=== PATIENT | male | born 1990 | race Caucasian/White ===

== ENCOUNTER 2017-11-21 13:35 | Emergency (ER) | payer MEDICAID, OTHER ==
[~2017-11-21] VITALS: Ht 185.4 cm; Wt 80.0 kg
[~2017-11-21 13:35] MED LIST: ALBU8HFA PO; CIPR2.5D18 LEFTEYE; CIPR2.5D18 RIGHTEYE; HYDR-569 PO; OMEP20CA10 PO; PRED50TA PO
[2017-11-21 14:47] VITALS: BP 138/87
== END 2017-11-21 15:00 | disposition left against medical advice (07) ==
LOC: ER 13:35
DX: R11.10 Vomiting, unspecified (principal); R42 Dizziness and giddiness

== ENCOUNTER 2019-09-07 00:09 | Emergency (ER) | payer MEDICAID ==
[~2019-09-07] VITALS: Ht 188 cm; Wt 81.8 kg
[~2019-09-07 00:09] MED LIST changes: +HYDR-4383 PO; -HYDR-569 PO; -OMEP20CA10 PO; +OMEP20CA15 PO
[2019-09-07 00:18] VITALS: BP 151/102
== END 2019-09-07 00:51 ==
LOC: ER 00:10
DX: Z04.1 Encounter for examination and observation following transport accident (principal); G43.909 Migraine, unspecified, not intractable, without status migrainosus; J45.909 Unspecified asthma, uncomplicated; G89.29 Other chronic pain; F12.90 Cannabis use, unspecified, uncomplicated; Z86.14 Personal history of Methicillin resistant Staphylococcus aureus infection; Z79.899 Other long term (current) drug therapy; V49.88XA Car occupant (driver) (passenger) injured in other specified transport accidents, initial encounter; Y93.89 Activity, other specified; Y92.413 State road as the place of occurrence of the external cause; Y99.9 Unspecified external cause status
CPT/HCPCS: 99283

== ENCOUNTER 2021-12-04 05:53 | Emergency (ER) | payer MEDICAID ==
[~2021-12-04] VITALS: Ht 188 cm; Wt 86.4 kg
[~2021-12-04 05:53] MED LIST changes: +CIPR2.5D14 LEFTEYE; +CIPR2.5D14 RIGHTEYE; -CIPR2.5D18 LEFTEYE; -CIPR2.5D18 RIGHTEYE
[2021-12-04 06:02] VITALS: BP 132/80
[2021-12-04] MEDS ORDERED: CEPH-585 PO (18:28)
== END 2021-12-04 06:59 | disposition left against medical advice (07) ==
LOC: ER 05:54
DX: M79.674 Pain in right toe(s) (principal); Z53.21 Procedure and treatment not carried out due to patient leaving prior to being seen by health care provider

== ENCOUNTER 2021-12-04 15:53 | Emergency (ER) | payer MEDICAID ==
[~2021-12-04] VITALS: Ht 190.5 cm; Wt 84.0 kg
[2021-12-04 16:28] VITALS: BP 155/81
[2021-12-04] MEDS ORDERED: CEPH-585 PO (18:28)
[2021-12-04] MEDS ORDERED: cephalexin 250mg capsule PO ONE (18:30)
[2021-12-04] MEDS ORDERED: ibuprofen tablet 400 MG TABLET PO ONE (18:30)
--- NOTE | 2021-12-04 18:40 | NUR ---
po meds x2 given
== END 2021-12-04 18:54 | disposition home or self-care (01) ==
LOC: ER 15:54
DX: S60.512A Abrasion of left hand, initial encounter (principal); L03.114 Cellulitis of left upper limb; G43.909 Migraine, unspecified, not intractable, without status migrainosus; J45.909 Unspecified asthma, uncomplicated; G89.29 Other chronic pain; F12.90 Cannabis use, unspecified, uncomplicated; Z86.14 Personal history of Methicillin resistant Staphylococcus aureus infection; Z72.89 Other problems related to lifestyle; Z79.2 Long term (current) use of antibiotics; Z79.899 Other long term (current) drug therapy; X58.XXXA Exposure to other specified factors, initial encounter; Y93.89 Activity, other specified; Y92.89 Other specified places as the place of occurrence of the external cause; Y99.8 Other external cause status
CPT/HCPCS: 99283

== ENCOUNTER 2022-04-30 16:13 | Emergency (ER) | payer MEDICAID ==
[~2022-04-30] VITALS: Ht 188 cm; Wt 95.0 kg
[~2022-04-30 16:13] MED LIST changes: +CEPH-585 PO
[2022-04-30 16:38] VITALS: BP 130/78
--- NOTE | 2022-04-30 17:00 | NUR ---
Attempted to placed pt in T2 for evaluation by ER provider. Pt became agitated and refused to be seen in that room. Explained to pt that he would then have to return to the lobby and wait for a different bed. Pt then gathered his belonging and left the dept, ambulating with a steady gait.
== END 2022-04-30 17:03 | disposition home or self-care (01) ==
LOC: ER 16:14
DX: F11.10 Opioid abuse, uncomplicated (principal); Z00.8 Encounter for other general examination; G89.29 Other chronic pain; M54.9 Dorsalgia, unspecified; F17.200 Nicotine dependence, unspecified, uncomplicated; F12.10 Cannabis abuse, uncomplicated; G43.909 Migraine, unspecified, not intractable, without status migrainosus; J45.909 Unspecified asthma, uncomplicated; Z79.1 Long term (current) use of non-steroidal anti-inflammatories (NSAID); Z79.2 Long term (current) use of antibiotics; Z79.899 Other long term (current) drug therapy
CPT/HCPCS: 99281

== ENCOUNTER 2022-08-28 16:46 | Emergency (ER) | payer MEDICAID ==
[~2022-08-28] VITALS: Ht 188 cm; Wt 95.0 kg
[2022-08-28 16:55] VITALS: BP 150/92
== END 2022-08-28 19:56 | disposition left against medical advice (07) ==
LOC: ER 16:48
DX: K08.89 Other specified disorders of teeth and supporting structures (principal); Z53.21 Procedure and treatment not carried out due to patient leaving prior to being seen by health care provider

== ENCOUNTER 2022-08-29 10:46 | Emergency (ER) | payer MEDICAID | END 2022-08-29 12:18 | disposition left against medical advice (07) | LOC: ER 10:47 | DX: L02.91 Cutaneous abscess, unspecified (principal); Z53.21 Procedure and treatment not carried out due to patient leaving prior to being seen by health care provider ==

== ENCOUNTER 2023-01-19 15:52 | Emergency (ER) | payer MEDICAID ==
[~2023-01-19] VITALS: Ht 188 cm; Wt 81.8 kg
[~2023-01-19 15:52] MED LIST changes: -CEPH-585 PO; +CIPR2.5D12 LEFTEYE; +CIPR2.5D12 RIGHTEYE; -CIPR2.5D14 LEFTEYE; -CIPR2.5D14 RIGHTEYE
[2023-01-19 16:00] VITALS: BP 138/79
[2023-01-19] MEDS ORDERED: BACI28.42 TOP (17:08)
[2023-01-19] MEDS ORDERED: bacitracin 15gm ointment TP ONE (17:10)
== END 2023-01-19 17:34 | disposition home or self-care (01) ==
LOC: ER 15:52
DX: T23.201A Burn of second degree of right hand, unspecified site, initial encounter (principal); T23.231A Burn of second degree of multiple right fingers (nail), not including thumb, initial encounter; G43.909 Migraine, unspecified, not intractable, without status migrainosus; J45.909 Unspecified asthma, uncomplicated; G89.29 Other chronic pain; F12.90 Cannabis use, unspecified, uncomplicated; Z86.14 Personal history of Methicillin resistant Staphylococcus aureus infection; Z72.89 Other problems related to lifestyle; Z79.899 Other long term (current) drug therapy; X08.8XXA Exposure to other specified smoke, fire and flames, initial encounter; Y93.89 Activity, other specified; Y92.89 Other specified places as the place of occurrence of the external cause; Y99.8 Other external cause status
CPT/HCPCS: 16020; 99282; A6223

== ENCOUNTER 2023-01-31 16:43 | Emergency (ER) | payer MEDICAID ==
[~2023-01-31] VITALS: Ht 188 cm; Wt 90.9 kg
[~2023-01-31 16:43] MED LIST changes: +BACI28.42 TOP
[2023-01-31 17:09] VITALS: BP 122/86
[2023-01-31] MEDS ORDERED: ketorolac tromethamine 15mg/ml inj. IM ONE (18:05)
== END 2023-01-31 19:00 | disposition home or self-care (01) ==
LOC: ER 16:44
DX: M79.672 Pain in left foot (principal); G43.909 Migraine, unspecified, not intractable, without status migrainosus; J45.909 Unspecified asthma, uncomplicated; F12.90 Cannabis use, unspecified, uncomplicated
CPT/HCPCS: 96372; 99283; J1885

== ENCOUNTER 2023-02-02 19:07 | Emergency (ER) | payer MEDICAID ==
[~2023-02-02] VITALS: Ht 188 cm; Wt 90.9 kg
[2023-02-02] MEDS ORDERED: oxyCODONE/APAP 10/325mg tablet PO ONE (21:00)
[2023-02-02] MEDS ORDERED: clindamycin 150mg capsule PO ONE (21:00)
[2023-02-02] MEDS ORDERED: ketorolac tromethamine 15mg/ml inj. IM ONE (21:00)
[2023-02-02] MEDS ORDERED: LIDOcaine 1% W/epiNEPHrine 1:100,000 20ml vial SQ ONE (21:15)
--- NOTE | 2023-02-02 22:46 | NUR ---
fab elizabeth at bedside
[2023-02-02] MEDS ORDERED: DOXY-356 PO (22:50)
[2023-02-02] MEDS ORDERED: CLIN-15 PO (22:50)
[2023-02-02 23:06] VITALS: BP 123/79
== END 2023-02-02 23:08 | disposition home or self-care (01) ==
LOC: ER 19:10
DX: K04.7 Periapical abscess without sinus (principal); L02.612 Cutaneous abscess of left foot; G43.909 Migraine, unspecified, not intractable, without status migrainosus; J45.909 Unspecified asthma, uncomplicated; F12.90 Cannabis use, unspecified, uncomplicated
CPT/HCPCS: 10060; 96372; 99283; J1885; A6258; A6446; A6449

== ENCOUNTER 2024-05-05 01:25 | Emergency (ER) | payer MEDICAID | END 2024-05-05 01:59 | disposition left against medical advice (07) | LOC: ER 01:26 | DX: Z76.0 Encounter for issue of repeat prescription (principal); Z53.21 Procedure and treatment not carried out due to patient leaving prior to being seen by health care provider ==

== ENCOUNTER 2024-10-11 22:47 | Emergency (ER) | payer MEDICAID ==
[~2024-10-11] VITALS: Ht 188 cm; Wt 72.8 kg
[2024-10-11 23:06] VITALS: TEMP 98.5
[2024-10-12] MEDS: HYDROcodone/acetaminophen 10/325mg tab PO STA (00:34)
[2024-10-12 00:41] LABS: BASOPHILS # (AUTO) 0.1 X10'3 (0-0.2); BASOPHILS % (AUTO) 0.7 % (0-1); EOSINOPHILS # (AUTO) 0.1 X10'3 (0-0.9); EOSINOPHILS % (AUTO) 1.3 % (0-6); HEMATOCRIT 42.6 % (42.0-52.0); HEMOGLOBIN 14.8 g/dl (14.0-17.9); LYMPHOCYTES # (AUTO) 1.2 X10'3 (1.1-4.8); MEAN CORPUSCULAR HEMOGLOBIN 31.1 PG (27.0-31.0); MEAN CORPUSCULAR HGB CONC 34.7 g/dL (33.0-36.5); MEAN CORPUSCULAR VOLUME 89.7 FL (78-98); MEAN PLATELET VOLUME 7.7 FL (7.4-10.4); MONOCYTES # (AUTO) 0.8 X10'3 (0-0.9); MONOCYTES % (AUTO) 6.9 % (2-12); NEUTROPHILS # (AUTO) 8.8 X10'3 (1.8-7.7); NEUTROPHILS % (AUTO) 80.1 % (42-75); PLATELET COUNT 201 X10'3 (140-440); RED BLOOD COUNT 4.75 X10'6 (4.70-6.10); RED CELL DISTRIBUTION WIDTH 12.8 % (11.5-14.5)
[2024-10-12 01:42] LABS: ALANINE AMINOTRANSFERASE 48 U/L (12-78); ALBUMIN 3.7 G/DL (3.4-5.0); ALKALINE PHOSPHATASE 137 IU/L (46-116); ANION GAP 7 (8-16); ASPARTATE AMINO TRANSFERASE 21 U/L (10-37); BILIRUBIN,TOTAL 0.3 MG/DL (0.1-1.0); BLOOD UREA NITROGEN 9 MG/DL (7-18); CALCIUM 8.4 MG/DL (8.5-10.1); CHLORIDE 98 MMOL/L (99-107); CREATININE 0.75 MG/DL (0.60-1.10); GLUCOSE 95 MG/DL (70-104); POTASSIUM 3.1 MMOL/L (3.5-5.1); SODIUM 134 MMOL/L (135-145); TOTAL PROTEIN 7.5 G/DL (6.4-8.2); eCRCL 146 ML/MIN; eGFR > 90 ML/MIN
[2024-10-12] MEDS: HYDROcodone/acetaminophen 5mg/325mg tablet PO ONE (04:15)
[2024-10-12] MEDS: sulfamethoxazole/trimethoprim DS (800/160mg) tablet PO ONE (04:16)
[2024-10-12] MEDS: cephalexin 250mg capsule PO ONE (04:16)
[2024-10-12] MEDS ORDERED: CEPH-585 PO (04:59)
[2024-10-12] MEDS ORDERED: SULF1TAB49 PO (04:59)
[2024-10-12] MEDS ORDERED: HYDR-3965 PO (04:59)
[2024-10-12 05:09] VITALS: BP 133/77; PULSE 74; RESP 16; O2SAT 95
== END 2024-10-12 05:15 | disposition home or self-care (01) ==
LOC: ER 22:48
DX: S67.22XA Crushing injury of left hand, initial encounter (principal); J45.909 Unspecified asthma, uncomplicated; G89.29 Other chronic pain; M54.9 Dorsalgia, unspecified; G43.909 Migraine, unspecified, not intractable, without status migrainosus; F12.90 Cannabis use, unspecified, uncomplicated; F19.90 Other psychoactive substance use, unspecified, uncomplicated; Z72.89 Other problems related to lifestyle; W18.39XA Other fall on same level, initial encounter; Y93.89 Activity, other specified; Y92.89 Other specified places as the place of occurrence of the external cause; Y99.8 Other external cause status
CPT/HCPCS: 36415; 73130; 80053; 85025; 99284